=== PATIENT | female | born 1940 | race Caucasian/White ===

== ENCOUNTER 2019-01-10 13:22 | Outpatient (RCR) | payer MEDICARE, OTHER ==
[~2019-01-10 13:22] MED LIST: AMLO2.5T PO; ASPI-587 PO; BNZ10T PO; GLYB1.253 PO; LEVO75TA57 PO; LOVA10TA PO; METF-380 PO; PRX20T PO; SITA100T PO; [UNRECOGNIZED DRUG - CODE] PO
[2019-01-10 14:16] LABS: BASOPHILS % (AUTO) 0 % (0-10); EOSINOPHILS # (AUTO) 0.1 10^3/uL (0.0-0.3); EOSINOPHILS % (AUTO) 2 % (0-10); HEMATOCRIT 45 % (35-52); HEMOGLOBIN 14.9 G/DL (11.5-16.0); LYMPHOCYTES # (AUTO) 2.3 X 10^3 (1.0-4.0); LYMPHOCYTES % (AUTO) 31 % (12-44); MEAN CORPUSCULAR HEMOGLOBIN 32 PG (25-34); MEAN CORPUSCULAR HGB CONC 33 G/DL (32-36); MEAN CORPUSCULAR VOLUME 96 FL (80-99); MEAN PLATELET VOLUME 11.9 FL (7.4-10.4); MONOCYTES # (AUTO) 0.9 X 10^3 (0.0-1.0); MONOCYTES % (AUTO) 12 % (0-12); NEUTROPHILS # (AUTO) 4.1 X 10^3 (1.8-7.8); NEUTROPHILS % (AUTO) 55 % (42-75); PLATELET COUNT 218 10^3/uL (130-400); RED CELL DISTRIBUTION WIDTH 12.7 % (10.0-14.5); WHITE BLOOD COUNT 7.5 10^3/uL (4.3-11.0)
[2019-01-10 14:37] LABS: ALANINE AMINOTRANSFERASE 33 U/L (0-55); ALBUMIN 4.2 GM/DL (3.2-4.5); ALKALINE PHOSPHATASE 90 U/L (40-136); BILIRUBIN,TOTAL 0.4 MG/DL (0.1-1.0); BUN/CREATININE RATIO 10; CALCIUM 9.7 MG/DL (8.5-10.1); CARBON DIOXIDE 22 MMOL/L (21-32); CHLORIDE 110 MMOL/L (98-107); CREATININE SERUM 0.87 MG/DL (0.60-1.30); GFR ESTIMATED > 60; GLUCOSE 169 MG/DL (70-105); POTASSIUM 4.3 MMOL/L (3.6-5.0); SODIUM 142 MMOL/L (135-145); TOTAL PROTEIN 6.9 GM/DL (6.4-8.2)
== END 2019-04-10 | disposition home or self-care (01) ==
LOC: ONC 13:22
PROVIDERS: ATTEND Internal Medicine Hematology & Oncology
DX: Z08 Encounter for follow-up examination after completed treatment for malignant neoplasm (principal); Z85.3 Personal history of malignant neoplasm of breast; Z85.41 Personal history of malignant neoplasm of cervix uteri; E11.9 Type 2 diabetes mellitus without complications; I10 Essential (primary) hypertension; E78.00 Pure hypercholesterolemia, unspecified; E03.9 Hypothyroidism, unspecified; Z90.13 Acquired absence of bilateral breasts and nipples; Z90.710 Acquired absence of both cervix and uterus; Z79.84 Long term (current) use of oral hypoglycemic drugs; Z79.899 Other long term (current) drug therapy
CPT/HCPCS: 36415; 80053; 85025; 99214

== ENCOUNTER → 2020-01-07 | Outpatient (CLI) | payer MEDICARE, OTHER ==
[2020-01-07 13:39] LABS: BASOPHILS % (AUTO) 1 % (0-10); EOSINOPHILS # (AUTO) 0.1 10^3/uL (0.0-0.3); EOSINOPHILS % (AUTO) 2 % (0-10); HEMATOCRIT 43 % (35-52); HEMOGLOBIN 14.5 G/DL (11.5-16.0); LYMPHOCYTES # (AUTO) 2.2 X 10^3 (1.0-4.0); LYMPHOCYTES % (AUTO) 30 % (12-44); MEAN CORPUSCULAR HEMOGLOBIN 33 PG (25-34); MEAN CORPUSCULAR HGB CONC 34 G/DL (32-36); MEAN CORPUSCULAR VOLUME 97 FL (80-99); MEAN PLATELET VOLUME 11.7 FL (7.4-10.4); MONOCYTES # (AUTO) 0.7 X 10^3 (0.0-1.0); MONOCYTES % (AUTO) 10 % (0-12); NEUTROPHILS # (AUTO) 4.3 X 10^3 (1.8-7.8); NEUTROPHILS % (AUTO) 58 % (42-75); PLATELET COUNT 233 10^3/uL (130-400); RED CELL DISTRIBUTION WIDTH 12.9 % (10.0-14.5); WHITE BLOOD COUNT 7.4 10^3/uL (4.3-11.0)
[2020-01-07 14:00] LABS: ALANINE AMINOTRANSFERASE 34 U/L (0-55); ALBUMIN 4.1 GM/DL (3.2-4.5); ALKALINE PHOSPHATASE 73 U/L (40-136); BILIRUBIN,TOTAL 0.3 MG/DL (0.1-1.0); BUN/CREATININE RATIO 12; CALCIUM 9.4 MG/DL (8.5-10.1); CARBON DIOXIDE 25 MMOL/L (21-32); CHLORIDE 107 MMOL/L (98-107); CREATININE SERUM 0.86 MG/DL (0.60-1.30); GFR ESTIMATED > 60; GLUCOSE 205 MG/DL (70-105); SODIUM 141 MMOL/L (135-145); TOTAL PROTEIN 6.7 GM/DL (6.4-8.2)
== END ==
LOC: EDSTATUS 04-11 16:27 → ONC 13:24
PROVIDERS: ATTEND Internal Medicine Hematology & Oncology
DX: C50.411 Malignant neoplasm of upper-outer quadrant of right female breast (principal); C50.912 Malignant neoplasm of unspecified site of left female breast; C55 Malignant neoplasm of uterus, part unspecified; Z17.0 Estrogen receptor positive status [ER+]; Z90.13 Acquired absence of bilateral breasts and nipples; Z90.710 Acquired absence of both cervix and uterus; Z90.722 Acquired absence of ovaries, bilateral; Z86.018 Personal history of other benign neoplasm
CPT/HCPCS: 80053; 85025; G0463; 99213

== ENCOUNTER 2021-01-13 09:20 | Outpatient (RCR) | payer MEDICARE, OTHER ==
[2021-01-13 11:26] LABS: BASOPHILS % (AUTO) 0 % (0-10); EOSINOPHILS % (AUTO) 0 % (0-10); HEMATOCRIT 45 % (35-52); HEMOGLOBIN 14.7 g/dL (11.5-16.0); LYMPHOCYTES # (AUTO) 1.5 10^3/uL (1.0-4.0); LYMPHOCYTES % (AUTO) 24 % (12-44); MEAN CORPUSCULAR HEMOGLOBIN 31 pg (25-34); MEAN CORPUSCULAR HGB CONC 33 g/dL (32-36); MEAN CORPUSCULAR VOLUME 97 fL (80-99); MEAN PLATELET VOLUME 10.8 fL (9.0-12.2); MONOCYTES # (AUTO) 0.6 10^3/uL (0.0-1.0); MONOCYTES % (AUTO) 9 % (0-12); NEUTROPHILS # (AUTO) 4.3 10^3/uL (1.8-7.8); NEUTROPHILS % (AUTO) 66 % (42-75); PLATELET COUNT 319 10^3/uL (130-400); WHITE BLOOD COUNT 6.4 10^3/uL (4.3-11.0)
[2021-01-13 11:45] LABS: ALANINE AMINOTRANSFERASE 27 U/L (0-55); ALBUMIN 4.1 GM/DL (3.2-4.5); ALKALINE PHOSPHATASE 68 U/L (40-136); BILIRUBIN,TOTAL 0.6 MG/DL (0.1-1.0); BUN/CREATININE RATIO 15; CALCIUM 9.4 MG/DL (8.5-10.1); CARBON DIOXIDE 23 MMOL/L (21-32); CHLORIDE 107 MMOL/L (98-107); CREATININE SERUM 0.81 MG/DL (0.60-1.30); GFR ESTIMATED > 60; GLUCOSE 112 MG/DL (70-105); POTASSIUM 4.1 MMOL/L (3.6-5.0); SODIUM 141 MMOL/L (135-145); TOTAL PROTEIN 7.4 GM/DL (6.4-8.2)
== END 2021-04-13 | disposition home or self-care (01) ==
LOC: ONC 09:20
PROVIDERS: ATTEND Nurse Practitioner Adult Health
DX: C50.911 Malignant neoplasm of unspecified site of right female breast (principal); C50.912 Malignant neoplasm of unspecified site of left female breast; C54.1 Malignant neoplasm of endometrium; I10 Essential (primary) hypertension; E11.9 Type 2 diabetes mellitus without complications; Z90.12 Acquired absence of left breast and nipple; Z90.11 Acquired absence of right breast and nipple; Z79.890 Hormone replacement therapy; Z86.010 Personal history of colon polyps
CPT/HCPCS: 80053; 85025; G0463; 99213

== ENCOUNTER 2022-03-21 12:00 | Emergency (ER) | payer MEDICARE, OTHER ==
[~2022-03-21] VITALS: Ht 157 cm; Wt 65.0 kg
--- NOTE | 2022-03-21 12:25 | ED GI ---
General Chief Complaint: Rect Problems Stated Complaint: RECTAL BLEEDING Source of Information: Patient Exam Limitations: No Limitations History of Present Illness Date Seen by Provider: Mar 21, 2022 Time Seen by Provider: 12:05 Initial Comments 82-year-old female presents today for likely blood per rectum. Symptoms started Monday. Happened 1 time on Monday and a couple times yesterday. She is not really having much stool output just small amounts of bright red blood at present. She denies any rectal pain, abdominal pain. No nausea or vomiting. She had a polyp removed during her colonoscopy several years ago but has not had anything more recent. She denies any history of cancer. She denies any dizzin ess lightheadedness shortness of breath. Allergies and Home Medications Allergies Coded Allergies: morphine (Verified Allergy, Unknown, 09/10/08) Patient Home Medication List Home Medication List Reviewed: Yes Amlodipine Besylate (Amlodipine Besylate) 2.5 Mg Tablet, 1 EACH PO WITH SUPPER, (Reported) Entered as Reported by: JOMAR AHN on 01/11/10 104 Aspirin (Aspir 81) 81 Mg Tablet.dr, 81 MG PO DAILY, (Reported) Entered as Reported by: HARRIS ESPINOSA on 09/01/14911 Benazepril Hcl (Lotensin 10 Mg) 10 Mg Tablet, 1 EACH PO DAILY, (Reported) Entered as Reported by: JOMAR AHN on 01/11/10 104 Glyburide (Glyburide) 1.25 Mg Tablet, 0.5 EACH PO BIDAC, (Reported) Entered as Reported by: HARRIS ESPINOSA on 09/01/14911 Levothyroxine Sodium (Synthroid) 75 Mcg Tablet, 1 EACH PO DAILY, (Reported) Entered as Reported by: HARRIS ESPINOSA on 09/01/14911 Lovastatin (Lovastatin 10 Mg) 10 Mg Tablet, 1 EACH PO HS, (Reported) Entered as Reported by: JOMAR AHN on 01/11/10 104 Metformin Hcl (Metformin 1000 Mg) 1,000 Mg Tablet, 1 EACH PO BID WITH MEALS, (Reported) Entered as Reported by: JOMAR AHN on 01/11/10 104 Review of Systems Review of Systems Constitutional: no symptoms reported EENTM: No Symptoms Reported Respiratory: No Symptoms Reported Cardiovascular: No Symptoms Reported Gastrointestinal: Other (Bright red blood per rectum) Genitourinary: No Symptoms Reported Musculoskeletal: no symptoms reported Skin: no symptoms reported Psychiatric/Neurological: No Symptoms Reported Endocrine: No Symptoms Reported Hematologic/Lymphatic: No Symptoms Reported Past Jerhxpl-Falulz-Yllvox Hx Patient Social History Tobacco Use?: No Use of E-Cig and/or Vaping dev: No Substance use?: No Alcohol Use?: No Past Medical History Reproductive Disorders: No Family Medical History Reviewed Nursing Family Hx No Pertinent Family Hx Physical Exam Vital Signs Vital Signs - First Documented 03/21/22 12:10 Temp 37.0 Pulse 91 Resp 20 B/P (MAP) 138/76 (96) O2 Delivery Room Air Capillary Refill : Height/Weight/BMI Height: 5'2.00" Weight: 160lbs. oz. 72.586471xe; BMI Method: General Appearance: WD/WN, no apparent distress HEENT: PERRL/EOMI, normal ENT inspection, TMs normal, pharynx normal Neck: non-tender, supple, normal inspection Respiratory: chest non-tender, lungs clear, normal breath sounds, no respiratory distress, no accessory muscle use Cardiovascular: regular rate, rhythm, no edema, no gallop, no JVD, no murmur Gastrointestinal: normal bowel sounds, non tender, soft, no organomegaly, no pulsatile mass Rectal: normal rectal tone; No hemorrhoids (Dark red blood), No mass; other Extremities: normal range of motion, non-tender, normal inspection, no pedal edema, no calf tenderness Back: normal inspection, no CVA tenderness, no vertebral tenderness Neurologic/Psychiatric: alert, normal mood/affect, oriented x 3 Skin: normal color, warm/dry Progress/Results/Core Measures Results/Orders Lab Results Laboratory Tests Test 03/21/22 12:30 Range/Units White Blood Count 8.8 4.3-11.0 10^3/uL Red Blood Count 3.86 3.80-5.11 10^6/uL Hemoglobin 12.4 11.5-16.0 g/dL Hematocrit 37 35-52 % Mean Corpuscular Volume 96 80-99 fL Mean Corpuscular Hemoglobin 32 25-34 pg Mean Corpuscular Hemoglobin Concent 34 32-36 g/dL Red Cell Distribution Width 12.5 10.0-14.5 % Platelet Count 239 130-400 10^3/uL Mean Platelet Volume 11.4 9.0-12.2 fL Immature Granulocyte % (Auto) 1 % Neutrophils (%) (Auto) 62 42-75 % Lymphocytes (%) (Auto) 27 12-44 % Monocytes (%) (Auto) 8 0-12 % Eosinophils (%) (Auto) 1 0-10 % Basophils (%) (Auto) 1 0-10 % Neutrophils # (Auto) 5.4 1.8-7.8 10^3/uL Lymphocytes # (Auto) 2.4 1.0-4.0 10^3/uL Monocytes # (Auto) 0.7 0.0-1.0 10^3/uL Eosinophils # (Auto) 0.1 0.0-0.3 10^3/uL Basophils # (Auto) 0.1 0.0-0.1 10^3/uL Immature Granulocyte # (Auto) 0.1 0.0-0.1 10^3/uL Sodium Level 142 135-145 MMOL/L Potassium Level 3.8 3.6-5.0 MMOL/L Chloride Level 105 98-107 MMOL/L Carbon Dioxide Level 22 21-32 MMOL/L Anion Gap 15 H 5-14 MMOL/L Blood Urea Nitrogen 14 7-18 MG/DL Creatinine 0.85 0.60-1.30 MG/DL Estimat Glomerular Filtration Rate 69 BUN/Creatinine Ratio 16 Glucose Level 146 H 70-105 MG/DL Calcium Level 9.5 8.5-10.1 MG/DL Corrected Calcium 9.2 8.5-10.1 MG/DL Total Bilirubin 0.5 0.1-1.0 MG/DL Aspartate Amino Transf (AST/SGOT) 23 5-34 U/L Alanine Aminotransferase (ALT/SGPT) 25 0-55 U/L Alkaline Phosphatase 68 40-136 U/L Total Protein 7.3 6.4-8.2 GM/DL Albumin 4.4 3.2-4.5 GM/DL My Orders Orders - QASIM BENOIT DO Cbc With Automated Diff (03/21/22 12:17) Comprehensive Metabolic Panel (03/21/22 12:17) Ct Abdomen/Pelvis W (03/21/22 13:19) Iohexol Injection (Omnipaque 350 Mg/Ml 1 (03/21/22 13:45) Received Contrast (Hold Metformin- Contr (03/21/22 13:45) Ns (Ivpb) (Sodium Chloride 0.9% Ivpb Bag (03/21/22 13:45) Medications Given in ED Current Medications Medications Dose Ordered Sig/Brain Route Start Time Stop Time Status Last Admin Dose Admin Iohexol 100 ml ONCE ONCE IV 03/21/22 13:45 03/21/22 13:46 DC 03/21/22 14:08 74 ML Sodium Chloride 100 ml ONCE ONCE IV 03/21/22 13:45 03/21/22 13:46 DC 03/21/22 14:09 80 ML Vital Signs/I&O 03/21/22 12:10 Temp 37.0 Pulse 91 Resp 20 B/P (MAP) 138/76 (96) O2 Delivery Room Air Diagnostic Imaging Diagonstic Imaging: CT Plain Films/CT/US/NM/MRI: abdomen Comments [facility], [place] NAME: HERMINIA PATINO [facility] REC#: [id number] PT STATUS: REG ER : 1940 PHYSICIAN: QASIM BENOIT DO ADMIT DATE: 03/21/22/ER Draft Date of Exam:03/21/22 CT ABDOMEN/PELVIS W Procedure: CT abdomen and pelvis with contrast. Technique: Multiple contiguous axial images were obtained through the abdomen and pelvis after administration of intravenous contrast. Auto Exposure Controls were utilized during the CT exam to meet ALARA standards for radiation dose reduction. All CT scans use one or more of the following dose optimizing techniques: automated exposure control, MA and/or KvP adjustment based on patient size and exam type or iterative reconstruction. Indication: Rectal bleeding, abdominal pain. Comparison: None. Discussion: Lung bases are well aerated. Normal heart size. No pleural or pericardial fluid. The gallbladder is surgically absent. The liver, pancreas, stomach, spleen, and adrenal glands are unremarkable. Benign cyst are noted within the bilateral kidneys. There does appear to be severe bilateral hydronephrosis present. The ureters are decompressed. This may represent bilateral ureteropelvic junction obstructions. No stones identified. Uterus appears to be surgically absent. The urinary bladder is unremarkable. Extensive diverticulosis with no secondary evidence for diverticulitis. The appendix is normal. There is no obvious rectal mass identified. Mesenteric induration and shotty adenopathy along the mesenteric root centrally is likely due to a chronic inflammatory process. No acute osseous abnormality. Impression: 1. Diverticulosis. 2. Bilateral hydronephrosis, likely due to ureteropelvic junction obstructions. No stone identified. Dictated on workstation # [id number] Dict: 03/21/22 1411 Trans: 03/21/22 1416 CVB [id number] Interpreted by: ELIECER ABDI MD Electronically signed by: Departure Communication (Admissions) Patient is hemodynamically stable. She does have some dark blood per rectum but not actively bleeding currently. CT scan was negative for any obvious masses. She has reliable follow-up with a general surgeon who actually had recently recommended her to do a colonoscopy. She will follow-up with her primary doctor and general surgeon, Dr. Hatfield. Discharged in stable condition with strict return precautions. Impression Primary Impression: Rectal bleeding Disposition: 01 HOME, SELF-CARE Condition: Stable Departure-Patient Inst. Referrals: KAYLEIGH SHAY DO (PCP/Family) Primary Care Physician Patient Instructions: Gastrointestinal Bleeding (DC) Add. Discharge Instructions: Please follow-up with your primary doctor in the next 24 to 48 hours. I would call Dr. Hatfield's office to schedule a colonoscopy as well. [facility] any chest pain, shortness of breath dizziness or lightheadedness or severe bleeding. All discharge instructions reviewed with patient and/or family. Voiced understanding. QASIM BENOIT DO Mar 21, 2022 12:25
[2022-03-21 12:43] LABS: BASOPHILS # (AUTO) 0.1 10^3/uL (0.0-0.1); BASOPHILS % (AUTO) 1 % (0-10); EOSINOPHILS # (AUTO) 0.1 10^3/uL (0.0-0.3); EOSINOPHILS % (AUTO) 1 % (0-10); HEMATOCRIT 37 % (35-52); HEMOGLOBIN 12.4 g/dL (11.5-16.0); LYMPHOCYTES # (AUTO) 2.4 10^3/uL (1.0-4.0); LYMPHOCYTES % (AUTO) 27 % (12-44); MEAN CORPUSCULAR HEMOGLOBIN 32 pg (25-34); MEAN CORPUSCULAR HGB CONC 34 g/dL (32-36); MEAN CORPUSCULAR VOLUME 96 fL (80-99); MEAN PLATELET VOLUME 11.4 fL (9.0-12.2); MONOCYTES # (AUTO) 0.7 10^3/uL (0.0-1.0); MONOCYTES % (AUTO) 8 % (0-12); NEUTROPHILS # (AUTO) 5.4 10^3/uL (1.8-7.8); NEUTROPHILS % (AUTO) 62 % (42-75); PLATELET COUNT 239 10^3/uL (130-400); WHITE BLOOD COUNT 8.8 10^3/uL (4.3-11.0)
[2022-03-21 12:51] LABS: ALBUMIN 4.4 GM/DL (3.2-4.5); POTASSIUM 3.8 MMOL/L (3.6-5.0)
[2022-03-21 12:52] LABS: CALCIUM 9.5 MG/DL (8.5-10.1)
[2022-03-21 12:53] LABS: TOTAL PROTEIN 7.3 GM/DL (6.4-8.2)
[2022-03-21 12:55] LABS: BILIRUBIN,TOTAL 0.5 MG/DL (0.1-1.0)
[2022-03-21 12:57] LABS: CREATININE SERUM 0.85 MG/DL (0.60-1.30)
[2022-03-21] MEDS ORDERED: IOHEXOL 350 MG/ML 100 ML (OMNIPAQUE 350) VIAL IV ONE (13:45)
[2022-03-21] MEDS ORDERED: NS 100 ML (IVPB) BAG IV ONE (13:45)
[2022-03-21] MEDS ORDERED: HOLD METFORMIN - RECEIVED CONTRAST 20 ML VIAL IV SCH (13:45)
--- NOTE | 2022-03-21 14:17 | Diagnostic Imaging Report ---
Procedure: CT abdomen and pelvis with contrast. Technique: Multiple contiguous axial images were obtained through the abdomen and pelvis after administration of intravenous contrast. Auto Exposure Controls were utilized during the CT exam to meet ALARA standards for radiation dose reduction. All CT scans use one or more of the following dose optimizing techniques: automated exposure control, MA and/or KvP adjustment based on patient size and exam type or iterative reconstruction. Indication: Rectal bleeding, abdominal pain. Comparison: None. Discussion: Lung bases are well aerated. Normal heart size. No pleural or pericardial fluid. The gallbladder is surgically absent. The liver, pancreas, stomach, spleen, and adrenal glands are unremarkable. Benign cyst are noted within the bilateral kidneys. There does appear to be severe bilateral hydronephrosis present. The ureters are decompressed. This may represent bilateral ureteropelvic junction obstructions. No stones identified. Uterus appears to be surgically absent. The urinary bladder is unremarkable. Extensive diverticulosis with no secondary evidence for diverticulitis. The appendix is normal. There is no obvious rectal mass identified. Mesenteric induration and shotty adenopathy along the mesenteric root centrally is likely due to a chronic inflammatory process. No acute osseous abnormality. Impression: 1. Diverticulosis. 2. Bilateral hydronephrosis, likely due to ureteropelvic junction obstructions. No stone identified. Dictated by: Dictated on workstation # [id number]
[2022-03-21 14:47] VITALS: BP 119/75
== END 2022-03-21 14:47 | disposition home or self-care (01) ==
LOC: EDUNIT# 12:00 → ER 12:02
DX: K62.5 Hemorrhage of anus and rectum (principal); Z28.310 Unvaccinated for COVID-19
CPT/HCPCS: 36415; 74177; 80053; 85025

== ENCOUNTER 2022-04-13 05:47 | Outpatient (CLI) | payer MEDICARE, OTHER ==
[~2022-04-13] VITALS: Ht 157.5 cm; Wt 65.8 kg
[2022-04-13] MEDS ORDERED: GLIP5TAB13 PO (12:18)
[2022-04-13] MEDS ORDERED: MULT-593 PO (12:18)
[2022-04-13] MEDS ORDERED: BENA10TA66 PO (12:18)
[2022-04-13] MEDS ORDERED: LEVO50CA4 PO (12:18)
[2022-04-13] MEDS ORDERED: METF-397 PO (12:18)
[2022-04-13] MEDS ORDERED: LOVA10TA PO (12:18)
[2022-04-13] MEDS ORDERED: AMLO2.5T4 PO (12:18)
== END 2022-04-13 12:29 ==
LOC: PREOP 05:47
PROVIDERS: ATTEND Surgery
DX: Z01.818 Encounter for other preprocedural examination (principal); K62.5 Hemorrhage of anus and rectum

== ENCOUNTER 2022-04-25 08:17 | Day surgery (SDC) | payer MEDICARE, OTHER ==
[~2022-04-25] VITALS: Ht 157 cm; Wt 65.8 kg
[~2022-04-25 08:17] MED LIST changes: +AMLO2.5T4 PO; +BENA10TA66 PO; +GLIP5TAB13 PO; +LEVO50CA4 PO; +METF-397 PO; +MULT-593 PO
[2022-04-25] MEDS ORDERED: LACTATED RINGERS 1,000 ML IV STA (08:25)
[2022-04-25 08:30] VITALS: BP 156/84
--- NOTE | 2022-04-25 09:24 | Progress Note-Pre Operative ---
Pre-Operative Progress Note Date of Available H&P: Mar 31, 2022 Date H&P Reviewed: Apr 25, 2022 Time H&P Reviewed: 09:22 History & Physical: H&P Reviewed, Patient Examed, No changes noted Pre-Operative Diagnosis: rectal bleed JUAN PABLO GUZMAN DO Apr 25, 2022 09:24
[2022-04-25] MEDS ORDERED: PROPOFOL INJECTION 50 ML IV ONE (09:48)
[2022-04-25 10:35] VITALS: BP 88/52
--- NOTE | 2022-04-25 10:36 | Progress Note-Post Operative ---
Post-Operative Progess Note Surgeon (s)/Forestry Fire Aid (s) Surgeon JUAN PABLO GUZMAN DO Forestry Fire Aid: CANDELARIO Terrell Pre-Operative Diagnosis rectal bleed Post-Operative Diagnosis Polyps Diverticula Int hemorrhoids Procedure & Operative Findings Date of Procedure 04/25/22 Procedure Performed/Findings Colonoscopy with Snare polypectomy Colonoscopy with tattoo PROCEDURE NOTE: After informed consent was obtained, the patient was brought to the endoscopy suite, placed in bed in left lateral decubitus position. She was administered IV sedation by the OTR FLATBED DRIVER who then monitored her vitals the entire time, heart rate, blood pressure and pulse ox and the scope was inserted, on the way in noted multiple large diverticula (actually seen throughout colon). Pushed all the way to about 150 cm and pushed into the cecum, took a picture of appendiceal orifice and noted the ileo-cecal valve. Then slowly withdrew the scope insufflating to look circumferentially at the martinez starting in the cecum, up the ascending colon to the hepatic flexure where I found two small polyps that I removed with snare polyp- ectomy. Then continued down the transverse colon to the splenic flexure and into the descending colon. Here I found a large polyp on a fold; I was unable to get all of it out and elected to tattoo the area. Finally down into the sigmoid and then into the rectal vault and retroflexed the scope. Took picture of the internal hemorrhoids. The patient tolerated the procedure. She was recovered in endoscopy suite. Recommended for repeat colonoscopy in 1 years. Anesthesia Type IV sedation by OTR FLATBED DRIVER Estimated Blood Loss Estimated blood loss (mL): scant Specimens/Packing Specimens Removed transverse colon polyp x 2 desc colon polyp JUAN PABLO GUZMAN DO Apr 25, 2022 10:36
--- NOTE | 2022-04-25 10:37 | Endoscopy Discharge Instruct ---
Endo Procedure/Findings Findings 1.: Polyp 2.: Diverticulosis 3.: Internal Hemorrhoids Discharge Instructions - Activity: You might feel a little sleepy until tomorrow. This is due to the medicine you received to relax you. Until tomorrow, you should: NOT drive a car, operate machinery or power tools. NOT drink any alcoholic beverages. NOT make any important decisions or sign importortant papers. Do not return to work until tomorrow, unless otherwise instructed. Resume previous activities tomorrow. Diet: Start by taking liquids. If you tolerate liquids, advance to solid food. 1.: Colonoscopy in 1 year Notify Physician - If you experience excessive bleeding, unusual abdominal pain, fever, or chest pain, contact your doctor immediately. JUAN PABLO GUZMAN DO Apr 25, 2022 10:37
[2022-04-25 10:40] VITALS: BP 92/55
[2022-04-25 10:45] VITALS: BP 99/52
[2022-04-25 11:20] VITALS: BP 99/52
--- NOTE | 2022-04-25 12:22 | Anesthesia-General Post-Op ---
MAC Patient Condition Mental Status/LOC: Same as Preop Cardiovascular: Satisfactory Nausea/Vomiting: Absent Respiratory: Satisfactory Pain: Controlled Complications: Absent Post Op Complications Complications None Follow Up Care/Instructions Patient Instructions None needed. Anesthesiology Discharge Order Discharge Order Patient is doing well, no complaints, stable vital signs, no apparent adverse anesthesia problems. No complications reported per nursing. BILLY EMERSON CRNA Apr 25, 2022 12:22
== END 2022-04-25 11:26 | disposition home or self-care (01) ==
LOC: ENDO 08:17
PROVIDERS: ATTEND Surgery
DX: D12.3 Benign neoplasm of transverse colon (principal); D12.4 Benign neoplasm of descending colon; K57.31 Diverticulosis of large intestine without perforation or abscess with bleeding; K64.8 Other hemorrhoids; E11.9 Type 2 diabetes mellitus without complications; Z85.3 Personal history of malignant neoplasm of breast; Z85.42 Personal history of malignant neoplasm of other parts of uterus; Z85.828 Personal history of other malignant neoplasm of skin

== ENCOUNTER → 2023-02-28 | Outpatient (CLI) | payer MEDICARE, OTHER ==
--- NOTE | 2023-02-28 14:38 | Diagnostic Imaging Report ---
INDICATION: N85.80, postmenopausal state COMPARISON: None available FINDINGS: AP Spine L1-L4: [BMD (g/cm2): 1.061] [T-Score: -1.2] [Z-Score: 0.6] [BMD Previous: NA] [BMD % Change: NA] LT Hip Neck: [BMD (g/cm2): 0.789] [T-Score: -1.8] [Z-Score: 0.4] LT Hip Total: [BMD (g/cm2):0.888] [T-Score:-1.0] [Z-Score: 1.1] [BMD Previous: NA] [BMD % Change: NA] RT Hip Neck: [BMD (g/cm2):0.686] [T-Score:-2.5] [Z-Score:-0.4] RT Hip Total: [BMD (g/cm2):0.767] [T-score:-1.9] [Z-Score:0.1] [BMD Previous:NA] [BMD % Change:NA] *Indicates significant change from prior examination based on 95% confidence level. World Health Organization criteria for BMD interpretation classify patients as Normal (T-score at or above -1.0), Osteopenic (T-score between -1.0 and -2.5) or Osteoporotic (T-score at or below -2.5). LIMITATIONS AND MODIFICATION: None. FRACTURE RISK (FRAX SCORE): The ten year probability of (%): Major Osteoporotic Fracture: [19.6] Hip Fracture: [7.2] IMPRESSION: 1. Osteoporosis. 2. Baseline examination. 3. See below National Osteoporosis Foundation guidelines on when to potentially initiate pharmacologic therapy. Based on the National Osteoporosis Foundation Guidelines, pharmacologic treatment should be initiated in any of the following, unless clinical conditions suggest otherwise: * Any patient with prior fragility fracture of the hip or vertebrae. A spine fracture indicates 5X risk for subsequent spine fracture and 2X risk for subsequent hip fracture. * Osteoporosis (T-score <-2.5). * Postmenopausal women and men age 50 and older with low bone mass/osteopenia (T-score between -1.0 and -2.5) by DXA and 10-year major osteoporotic fracture greater than 20% or a 10-year probability of hip fracture greater than 3%. These fracture risks are supplied above in the FRAX score, if applicable. * Clinician judgement and/or patient preferences may indicate treatment for people with 10-year fracture probabilities above or below these levels. Dictated by: Dictated on workstation # [id number]
== END ==
LOC: RAD 08:03
PROVIDERS: ATTEND Internal Medicine
DX: M81.0 Age-related osteoporosis without current pathological fracture (principal); Z78.0 Asymptomatic menopausal state
CPT/HCPCS: 77080

== ENCOUNTER 2023-05-17 05:38 | Outpatient (CLI) | payer MEDICARE, OTHER ==
[~2023-05-17] VITALS: Ht 157.4 cm; Wt 69.8 kg
[2023-05-17] MEDS ORDERED: ASPI-999 PO (08:58)
[2023-05-17] MEDS ORDERED: ALEN70TA80 PO (08:58)
[2023-05-17] MEDS ORDERED: ASCO500T17 PO (08:58)
[2023-05-17] MEDS ORDERED: VITA-212 PO (08:58)
== END 2023-05-17 09:14 | disposition home or self-care (01) ==
LOC: PREOP 05:38
PROVIDERS: ATTEND Surgery
DX: Z01.818 Encounter for other preprocedural examination (principal)

== ENCOUNTER 2023-05-22 09:50 | Day surgery (SDC) | payer MEDICARE, OTHER ==
[~2023-05-22] VITALS: Ht 157.4 cm; Wt 69.8 kg
[~2023-05-22 09:50] MED LIST changes: +ALEN70TA80 PO; +ASCO500T17 PO; +ASPI-999 PO; -GLIP5TAB13 PO; +GLIP5TAB23 PO; +VITA-212 PO
[2023-05-22] MEDS ORDERED: LACTATED RINGERS 1,000 ML 1,000 ML IV STA (09:58)
[2023-05-22 10:08] VITALS: BP 149/89
--- NOTE | 2023-05-22 10:39 | Progress Note-Pre Operative ---
Pre-Operative Progress Note Date of Available H&P: May 16, 2023 Date H&P Reviewed: May 22, 2023 Time H&P Reviewed: 09:38 History & Physical: H&P Reviewed, Patient Examed, No changes noted Pre-Operative Diagnosis: + JUAN PABLO Avila DO May 22, 2023 10:39
[2023-05-22 12:05] VITALS: BP 117/58
[2023-05-22 12:10] VITALS: BP 108/58
--- NOTE | 2023-05-22 12:14 | Progress Note-Post Operative ---
Post-Operative Progess Note Surgeon (s)/Management Expert (s) Surgeon JUAN PABLO GUZMAN DO Management Expert: Reanna Borjas, MSIII Pre-Operative Diagnosis Hx of polyps Post-Operative Diagnosis Polyp diverticula int hemorrhoids Procedure & Operative Findings Date of Procedure 05/22/23 Procedure Performed/Findings Colonoscopy with cold biopsy PROCEDURE NOTE: After informed consent was obtained, the patient was brought to the endoscopy suite, placed in bed in left lateral decubitus position. She was administered IV sedation by the SPOT MACHINE OPERATOR who then monitored her vitals the entire time, heart rate, blood pressure and pulse ox and the scope was inserted, while pushing in I noted multiple large diverticula and found the area of tattooing. I pushed all the way to about 150 cm and pushed into the cecum, took a picture of appendiceal orifice and noted the ileocecal valve. Then slowly withdrew the scope insufflating to look circum- ferentially at the martinez starting in the cecum, up the ascending colon to the hepatic flexure, then down the transverse colon to the splenic flexure and into the descending colon. I again saw the large flat polyp, but it was in a position that I was unable to remove it and elected to do a cold biopsy. I don't think it looked much changed comparted to last time. Finally, down into the sigmoid and then into the rectal vault and retroflexed the scope. Took a picture of the internal hemorrhoids. The patient tolerated the procedure. She was recovered in endoscopy suite. Recommended for repeat colonoscopy in 1-3 years. Anesthesia Type IV sedation by SPOT MACHINE OPERATOR Estimated Blood Loss Estimated blood loss (mL): scant Specimens/Packing Specimens Removed desc colon polyp bx JUAN PABLO GUZMAN DO May 22, 2023 12:14
--- NOTE | 2023-05-22 12:15 | Endoscopy Discharge Instruct ---
Endo Procedure/Findings Findings 1.: Polyp 2.: Diverticulosis 3.: Internal Hemorrhoids Discharge Instructions - Activity: You might feel a little sleepy until tomorrow. This is due to the medicine you received to relax you. Until tomorrow, you should: NOT drive a car, operate machinery or power tools. NOT drink any alcoholic beverages. NOT make any important decisions or sign importortant papers. Do not return to work until tomorrow, unless otherwise instructed. Resume previous activities tomorrow. Diet: Start by taking liquids. If you tolerate liquids, advance to solid food. 1.: Colonoscopy in 1 year Notify Physician - If you experience excessive bleeding, unusual abdominal pain, fever, or chest pain, contact your doctor immediately. Follow-Up: Other Follow up in my office in one week JUAN PABLO GUZMAN DO May 22, 2023 12:15
[2023-05-22 12:45] VITALS: BP 108/58
--- NOTE | 2023-05-22 12:47 | Anesthesia-General Post-Op ---
MAC Patient Condition Mental Status/LOC: Same as Preop Cardiovascular: Satisfactory Nausea/Vomiting: Absent Respiratory: Satisfactory Pain: Controlled Complications: Absent Post Op Complications Complications None Follow Up Care/Instructions Patient Instructions None needed. Anesthesiology Discharge Order Discharge Order Patient is doing well, no complaints, stable vital signs, no apparent adverse anesthesia problems. No complications reported per nursing. MARCUS SWAN CRNA May 22, 2023 12:47
== END 2023-05-22 12:45 | disposition home or self-care (01) ==
LOC: ENDO 09:50
PROVIDERS: ATTEND Surgery
DX: Z12.11 Encounter for screening for malignant neoplasm of colon (principal); D12.4 Benign neoplasm of descending colon; K64.8 Other hemorrhoids; K57.30 Diverticulosis of large intestine without perforation or abscess without bleeding